=== PATIENT | female | born 1990 | race Caucasian/White ===

== ENCOUNTER 2018-02-09 16:55 | Emergency (ER) | END 2018-02-09 22:09 | disposition home or self-care (01) ==

== ENCOUNTER 2018-10-12 10:54 | Inpatient (IN) | payer MEDICAID ==
[~2018-10-12] VITALS: Ht 157.5 cm; Wt 81.0 kg
[~2018-10-12 10:54] MED LIST: ACET500C5 PO; CEPH-443 PO; PRENAT PO
[2018-10-12 11:21] VITALS: Ht 157.5 cm; Wt 81.0 kg
[2018-10-12 11:22] VITALS: BP 119/68; PULSE 77; RESP 18
[2018-10-12] MEDS ORDERED: CARBOPROST 250 MCG INJ IM PRN (12:00)
[2018-10-12] MEDS ORDERED: LIDOCAINE 1% (MPF) 30 ML INJ INJ PRN (12:00)
[2018-10-12] MEDS ORDERED: BUTORPHANOL 2 MG INJ IV PRN ×2 (12:00)
[2018-10-12] MEDS ORDERED: OXYTOCIN 30 UNITS/LR 500 ML IV SCH (12:00)
[2018-10-12] MEDS ORDERED: METHYLERGONOVINE 0.2 MG INJ IM PRN (12:00)
[2018-10-12] MEDS ORDERED: OXYTOCIN 30 UNITS/LR 500 ML IV PRN (12:00)
[2018-10-12] MEDS ORDERED: MISOPROSTOL 200 MCG TAB PR PRN (12:00)
[2018-10-12] MEDS: LACTATED RINGER'S 1,000 ML IV SCH ×4 (12:09→22:13)
--- NOTE | 2018-10-12 14:17 | PREAC ---
Date/Time of Note Date/Time of Note DATE: 10/12/18 TIME: 14:16 Anesthesia Eval and Record Evaluation Time Pre-Procedure Interview DATE: 10/12/18 TIME: 14:16 Age 27 Sex female NPO: 8 hrs Preoperative diagnosis intrauterine Planned procedure labor epidural Past Medical History Past Medical History: Includes : : (2), Para: (1) Surgery & Anesthesia Issues No known issue Meds Anticoagulation: No Beta Liu within 24 hr: No Reason Beta Liu not given: Pt. not on B-Liu Active Scripts Acetaminophen* (Tylophen*) 500 Mg Capsule, 1 CAP PO Q6H PRN for PAIN AND OR ELEVATED TEMP, #20 CAP Prov:JAJA ADAMS PA-C 02/09/18 Cephalexin* (Keflex*) 500 Mg Capsule, 500 MG PO TID for 7 Days, CAP Prov:JAJA ADAMS PA-C 02/09/18 Reported Medications Multivit/Min/Fol Ac/Iron/Pren* ( S*) 1 Tab Tab, 1 TAB PO DAILY, TAB 11/28/15 Current Medications Lactated Ringer's 1,000 ml @ 125 mls/hr Q8H IV Last administered on 10/12/18at 12:09; Admin Dose 125 MLS/HR; Start 10/12/18 at 11:49 Butorphanol Tartrate (Stadol) 1 mg Q2H PRN IV .PAIN SCALE 1-5; Start 10/12/18 at 12:00 Butorphanol Tartrate (Stadol) 2 mg Q2H PRN IV .PAIN SCALE 6-10; Start 10/12/18 at 12:00 Lidocaine (Xylocaine 1% (Mpf)) 30 ml ONCE PRN INJ .EPISIOTOMY; Start 10/12/18 at 12:00 Oxytocin/Lactated Ringer's 500 ml @ 500 mls/hr ONCE POST IV ; Start 10/12/18 at 12:00 Oxytocin/Lactated Ringer's 500 ml @ 125 mls/hr POST IV ; Start 10/12/18 at 12:00 Oxytocin/Lactated Ringer's 500 ml @ 0 mls/hr ONCE PRN IV .VAGINAL BLEEDING; Start 10/12/18 at 12:00 Methylergonovine Maleate (Methergine) 0.2 mg ONCE PRN IM .VAGINAL BLEEDING; Start 10/12/18 at 12:00 Carboprost Tromethamine (Hemabate) 250 mcg ONCE PRN IM .VAGINAL BLEEDING; Start 10/12/18 at 12:00 Misoprostol (Cytotec) 1,000 mcg ONCE PRN WI .VAGINAL BLEEDING; Start 10/12/18 at 12:00 Meds reviewed: Yes Allergies Coded Allergies: No Known Allergy (Unverified , 11/28/15) Allergies Reviewed: Yes Labs/Studies Labs Reviewed: Reviewed by anesthesiologist Result Diagram: 10/12/18 1205 Laboratory Tests 10/12/18 12:05 Blood Bank Test 10/12/18 12:05 Antibody Screen NEGATIVE Blood Type O POSITIVE Rh Immune Globulin Candidate NO test: N/A Pre-procedure Exam Last vitals Vital Signs Date Temp Pulse Resp B/P (MAP) Pulse Ox O2 O2 Flow FiO2 Time Delivery Rate 10/12/18 98.0 77 18 119/68 11:22 (85) Airway: Adequate mouth opening, Adequate thyromental dist Mallampati: Mallampati II Teeth: Normal Lung: Normal Heart: Normal ASA Physical Status ASA physical status: 2 Emergency: None Planned Anesthetic Neuraxial: Epidural Planned Pain Management Epidural Pre-operative Attestations Prior to commencing anesthesia and surgery, the patient was re-evaluated, there was verification of: *The patient's identity *The results of appropriate recent lab work and preoperative vital signs *The above evaluation not changing prior to induction *Anesthetic plan, risk benefits, alternative and complications discussed with patient/family; questions answered; patient/family understands, accepts and wishes to proceed. NO MATSON MD Oct 12, 2018 14:17
[2018-10-12] MEDS ORDERED: FENTAnyl 2MCG/ML-ROPIV 0.2% 100 ML ONE (14:20)
[2018-10-12] MEDS ORDERED: NALOXONE (0.4 MG/ML) INJ IV PRN (14:30)
[2018-10-12] MEDS ORDERED: ONDANSETRON 4 MG INJ IV PRN (14:30)
[2018-10-12] MEDS ORDERED: DIPHENHYDRAMINE 50 MG INJ IV PRN (14:30)
--- NOTE | 2018-10-12 14:47 | PAC ---
Date/Time of Note Date/Time of Note DATE: 10/12/18 TIME: 14:46 Post-Anesthesia Notes Post-Anesthesia Note Last documented vital signs Vital Signs Date Temp Pulse Resp B/P (MAP) Pulse Ox O2 O2 Flow FiO2 Time Delivery Rate 10/12/18 98.0 77 18 119/68 11:22 (85) Activity: WNL Respiratory function: WNL Cardiovascular function: WNL Mental status: Baseline Pain reasonably controlled: Yes Hydration appropriate: Yes Nausea/Vomiting absent: Yes Comments BP: 130/80 HR: 78 RR: 15 T: 98 SaO2: 99% NO MATSON MD Oct 12, 2018 14:46
[2018-10-12] MEDS: FENTAnyl 2MCG/ML-ROPIV 0.2% 100 ML BAG EPI SCH ×2 (15:08→22:16)
[2018-10-12] MEDS ORDERED: MINERAL OIL LIGHT 10 ML VIAL TOP PRN (15:30)
[2018-10-12] MEDS ORDERED: IBUPROFEN 600 MG TAB PO PRN (15:30)
[2018-10-12] MEDS ORDERED: OXYCODONE/ASPIRIN (4.88/325) TAB PO PRN (15:30)
--- NOTE | 2018-10-12 17:33 | HP ---
Date/Time of Note Date/Time of Note DATE: 10/12/18 TIME: 17:27 OB - History Hx of Present Free Text/Dictation 27y.o at 39w5d with c/o uc's 5min with intact membrane. VE 2/80/-2 hx of chlamydia infection in mar 2018 treated and re cked neg admitted for expetant management. Chief Complaint: uc's Estimated Due Date: Oct 14, 2018 : 2 Para: 1 Spontaneous : 0 Therapeutic : 0 Care: Other Ultrasounds: Normal mid trimester US, Other Medical Complications: None Past Family/Social History * Past Medical, Surgical, Family and Obstetric Histories reviewed from chart. Blood Type: O+ Rubella: immune RPR/VDRL: Negative GBS Status: Negative HBsAG: Negative OB Admission Exam Vital Signs Vital Signs Vital Signs Date Temp Pulse Resp B/P (MAP) Pulse Ox O2 O2 Flow FiO2 Time Delivery Rate 10/12/18 98.0 77 18 119/68 11:22 (85) Physical Exam HEENT: WNL Heart: Rhythm Normal Lungs: Clear, Equal Abdomen: WNL Extremities: Normal Reflexes: Normal Cervical Dilatation: 2cm Effacement: 75% Station: -2 Membranes: Intact Amniotic Fluid: Unevaluable Heart Rate: 140's Accelerations: Accelerations Present Decelerations: No Decelerations Varibility: Moderate Contractions on Admission: < 5 Minutes Apart Intensity: Moderate Last 72 hours Lab Results CBC & BMP 10/12/18 12:05 OB Assessment/Plan Reason for admission: active labor Other Assessment: IUP 39w5d Plan: Expectant Management KAYLA PRINCE MD Oct 12, 2018 17:33
[2018-10-13] MEDS: OXYTOCIN 30 UNITS/LR 500 ML IV SCH ×2 (01:58→02:04)
[2018-10-13] MEDS ORDERED: OXYTOCIN 30 UNITS/LR 500 ML IV SCH (02:09)
[2018-10-13] MEDS: LACTATED RINGER'S 1,000 ML IV* SCH ×2 (02:09→10:09)
--- NOTE | 2018-10-13 02:09 | LDN ---
Date/Time of Note Date/Time of Note DATE: 10/13/18 TIME: 02:07 Delivery Summary Weeks of Gestation Term gestation Placenta Delivered: Spontaneously Meconium: none Episiotomy: No Laceration repair: First-degree laceration repaired with 3-0 chromic Anesthesia type: Epidural Estimated blood loss: 200 Sponge & Needle done & correct: Yes All needle counts correct: Yes Any foreign bodies felt in the: No Infant Delivery Information Sex Infant Sex: male Apgars 1 Minute: 8 5 Minute: 9 Suctioning Nose & mouth suctioned at oscar: Yes Delee suction performed: No Umbilical Cord Umbilical cord with: 3 Vessels Cord presentations: no nuchal cord Cord Blood was obtained: Yes Mother & Baby Disposition Disposition Baby's weight 8 pounds 9 ounces/ 3880 g Copies To: CC: ЮЛИЯ CHINCHILLA MD ; MARCEL BAJWA MD Oct 13, 2018 02:09
[2018-10-13] MEDS ORDERED: CARBOPROST 250 MCG INJ IM PRN (02:30)
[2018-10-13] MEDS ORDERED: BENZOCAINE 20% 56 ML SPRAY TOP PRN (02:30)
[2018-10-13] MEDS ORDERED: LANOLIN HPA 1 PKT TOP PRN (02:30)
[2018-10-13] MEDS ORDERED: DIBUCAINE 1% 30 GM OINT TOP PRN (02:30)
[2018-10-13] MEDS ORDERED: OXYTOCIN 30 UNITS/LR 500 ML IV PRN (02:30)
[2018-10-13] MEDS ORDERED: MAGNESIUM HYDROXIDE 30ML CUP PO PRN (02:30)
[2018-10-13] MEDS ORDERED: METHYLERGONOVINE 0.2 MG INJ IM PRN (02:30)
[2018-10-13] MEDS ORDERED: SENNA/DOCUSATE NA (8.6MG/50MG) TAB PO PRN (02:30)
[2018-10-13] MEDS ORDERED: MISOPROSTOL 200 MCG TAB PR PRN (02:30)
[2018-10-13] MEDS ORDERED: ONDANSETRON 4 MG INJ IV PRN (02:30)
[2018-10-13] MEDS ORDERED: ACETAMINOPHEN 325 MG TAB PO PRN ×2 (02:30)
[2018-10-13] MEDS ORDERED: WITCH HAZEL/GLYCERIN PAD PR PRN (02:30)
[2018-10-13 04:00] VITALS: BP 128/90; PULSE 70; RESP 20
[2018-10-13 08:50] VITALS: BP 118/71; PULSE 73; RESP 20
[2018-10-13 13:33] VITALS: BP 95/56; PULSE 78; RESP 20
[2018-10-13 16:07] VITALS: BP 95/59; PULSE 86; RESP 18
[2018-10-13 19:35] VITALS: BP 109/58; PULSE 72; RESP 18
[2018-10-14] MEDS: IBUPROFEN 600 MG TAB PO PRN ×4 (00:29→22:48)
[2018-10-14 00:52] VITALS: BP 113/73; PULSE 74; RESP 20
[2018-10-14 03:51] VITALS: BP 100/58; PULSE 72; RESP 20
[2018-10-14 08:00] VITALS: BP 101/57; PULSE 58; RESP 18
--- NOTE | 2018-10-14 11:31 | QN ---
Documentation Comment PPD#1 is stable afebrile tolerates diet No VB +BM +voids VS stable Gen NAD Abd soft NT ND Genitalia No blood at perineum --->Discharge Home tomorrow JOHANNE REYNOSO M.D. Oct 14, 2018 11:31
[2018-10-14 15:48] VITALS: BP 121/75; PULSE 69; RESP 16
[2018-10-14 20:40] VITALS: BP 106/61; PULSE 73; RESP 19
[2018-10-14] MEDS: FERROUS SULFATE (EC) 325 MG TAB PO SCH (22:20)
[2018-10-15 04:00] VITALS: BP 113/68; PULSE 76; RESP 18
[2018-10-15 08:00] VITALS: BP 123/69; PULSE 58; RESP 16
--- NOTE | 2018-10-15 09:44 | PD.PPDC ---
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
--- NOTE | 2018-10-15 09:46 | DS ---
Date/Time of Note Date/Time of Note DATE: 10/15/18 TIME: 09:45 Obstetrical Discharge Record Final Diagnosis Final Diagnosis: Term delivered Vaginal Delivery Obstetrical Delivery: Spontaneous Condition on Discharge Physical Assessment Last Vitals: stable afebrile Voiding: Yes Bowel Movement: Yes Breast: Soft, non-tender, Filling Fundus: Firm Abdomen and Incision: soft nt no distention Calf Tenderness: No Patient Condition: Fair ЮЛИЯ CHINCHILLA MD Oct 15, 2018 09:46
[2018-10-15] MEDS: FERROUS SULFATE (EC) 325 MG TAB PO SCH (10:08)
--- NOTE | 2018-10-16 15:16 | DELSUM ---
Delivery Summary A-C Datetime Report Generated by CPN: 10/16/2018 15:15 DELIVERY PERSONNEL Track Inspecting Supervisor: Hassan, Nora MATERNAL INFORMATION Delivery Anesthesia: Epidural Delivery QBL (ml): 200 Placenta Cultured: No Maternal Complications: None LABOR SUMMARY EDC: 10/14/2018 00:00 No. Babies in Womb: 1 Attempted: No Labor Anesthesia: Epidural LABOR INFORMATION Reason for Induction: Not Applicable Onset of Labor: 10/11/2018 20:00 Complete Dilatation: 10/13/2018 01:15 Oxytocin: N/A Group B Beta Strep: Negative Antibiotics # of Doses: none Steroids Given: None Reason Steroids Not Administered: Not Applicable MEMBRANES Membranes Rupture Method: Spontaneous Rupture of Membranes: 10/12/2018 23:09 Length of Rupture (hr): 2.57 Amniotic Fluid Color: Clear Amniotic Fluid Amount: Small Amniotic Fluid Odor: Normal STAGES OF LABOR Stage 1 hr: 29 Stage 1 min: 15 Stage 2 hr: 0 Stage 2 min: 28 Stage 3 hr: 0 Stage 3 min: 2 Total Time in Labor hr: 29 Total Time in Labor min: 45 VAGINAL DELIVERY Episiotomy: None Laceration Extension: First Degree Laceration Repair: Yes Initial Vag Sponge Count: 10 Final Vag Sponge Count: 10 Initial Vag Sharps Count: 1 Final Vag Sharps Count: 3 Sponge Count Correct: Yes Sharps Count Correct: Yes BABY A INFORMATION Infant Delivery Date/Time: 10/13/2018 01:43 Method of Delivery: Vaginal Born in Route : No : N/A Forceps: N/A Vacuum Extraction: N/A Shoulder Dystocia : N/A SHOULDER DYSTOCIA BABY A Infant Delivery Date/Time: 10/13/2018 01:43 PRESENTATION/POSITION BABY A Presentation: Cephalic Cephalic Presentation: Vertex Vertex Position: Left Occipital Anterior Breech Presentation: N/A PLACENTA INFORMATION BABY A Placenta Delivery Time : 10/13/2018 01:45 Placenta Method of Delivery: Spontaneous Placenta Status: Delivered SCORES BABY A Heart Rate 1 min: >100 bpm Resp Effort 1 min: Good Cry Reflex Irritability 1 min: Cough/Sneeze/Pulls Away Muscle Tone 1 min: Active Motion Color 1 min: Blue/Pale Resuscitation Effort 1 min: Tactile Stimulation SCORE 1 MIN: 8 Heart Rate 5 min: >100 bpm Resp Effort 5 min: Good Cry Reflex Irritability 5 min: Cough/Sneeze/Pulls Away Muscle Tone 5 min: Active Motion Color 5 min: Body Percival, Extremit Blue Resuscitation Effort 5 min: Tactile Stimulation SCORE 5 MIN: 9 INFANT INFORMATION BABY A Gestational Age at Delivery: 39.6 Gestational Status: Full Term- 39- 40.6 Weeks Infant Outcome : Liveborn Infant Condition : Stable Sex: Male IDENTIFICATION/MEDS BABY A ID Band Number: [id number] ID Band Location: Right Leg; Left Arm Sensor Applied: Yes Sensor Number: [id number] Sensor Location : Cord Clamp Vitamin K Given : Not Given Erythromycin Given: Not Given WEIGHT/LENGTH BABY A Birthweight (gm): 3880 Weight (lb): 8 Weight (oz): 9 Length (in): 20.00 Length (cm): 50.80 CORD INFORMATION BABY A No. Cord Vessels: 3 Nuchal Cord : N/A Cord Blood Taken: Yes Infant Suction: Mouth; Nose
== END 2018-10-15 15:00 | disposition home or self-care (01) | DRG 807 ==
LOC: OBT 10:54 → L-D 10:55 → OBT 11:40 → L-D 11:40 → PP1 10-13 03:45
PROVIDERS: ADMIT Obstetrics & Gynecology; ATTEND Obstetrics & Gynecology
PROC: 10E0XZZ Delivery of Products of Conception, External Approach (ICD-10-PCS; principal; 2018-10-13)
PROC: 0HQ9XZZ Repair Perineum Skin, External Approach (ICD-10-PCS; 2018-10-13)
DX: O70.0 First degree perineal laceration during delivery (principal); Z37.0 Single live birth; Z3A.39 39 weeks gestation of pregnancy
CPT/HCPCS: 62322; 85025; 85610; 85730; 86592; 86850; 86900; 86901; 87340; G0463; J2210; J2590; J3010; J7120